=== PATIENT | male | born 1990 | race Two or more races ===

== ENCOUNTER 2020-04-22 16:36 | Emergency (ER) | payer SELFPAY ==
[2020-04-22 16:41] VITALS: BP 152/90; PULSE 98; RESP 20; TEMP 36.7; O2SAT 98; BMI 29.7
--- NOTE | 2020-04-22 17:04 | HMH.EDUTC ---
[facility] [place] Impression: Poison radha dermatitis Disposition: Home, Self-Care Condition on Discharge: Good Instructions: Summertime Rashes: Poison Radha, [place], and [place], Poison Radha, Poison [place], Poison [place], DI for Poison Radha Allergy, Prednisone Additional Instructions: over the counter Benadryl may help with itching *Over the counter Calamine lotion and oatmeal bathes may help to dry up the rash Take Prednisone dose pack as prescribed Return if needed Straight to ER if any life threatening symptoms Prescriptions: predniSONE [Prednisone 5mg Tab Dose-Pack] 5 mg PO UD DOSE PK 6 Days #21 pack Transmission Status: Pending to [id number] Referrals: Provider,Referral, MD [Primary Care Provider] - As needed Medical Decision Making - Drew Inquiry Pt receiving controlled substance: No Drew was queried for this patient: No Vital Signs: 04/22/20 16:41 Temperature 98.0 F Temperature Source Oral Pulse Rate [Right Brachial] 98 H Respiratory Rate 20 Blood Pressure [Right Arm] 152/90 H Blood Pressure Mean [Right Arm] 110 Blood Pressure Source [Right Arm] Automatic Cuff Blood Pressure Position [Right Arm] Sitting 02 Sat by Pulse Oximetry 98 Oxygen Delivery Method Room Air Orders (Tests/Meds): ED MEDICATIONS Discontinued Medications Generic Name Dose Route Start Last Admin Trade Name Milad PRN Reason Stop Dose Admin Methylprednisolone Sodium Succinate 125 mg 04/22/20 17:04 Solu-Medrol 125mg/2ml Vial IM 04/22/20 17:05 [place] [facility] [place] - General Stated complaint: POISON ON BOTH ARMS Time Seen by Provider: 04/22/20 17:04 Mode of Arrival: Ambulatory Source of Information: Patient Limitations: No Limitations Description of Symptoms (Recalled from Triage Doc. by RN): pt c/o a rash for 3 days, he states he thinks its poion radha HEENT Symptoms (Recalled from RN notes): No Resp Symptoms (Recalled from RN notes): No Skin Symptoms (Recalled from RN notes): Yes MS Symptoms (Recalled from RN notes): No Functional Status (Recalled from RN notes): Na - History of Present Illness Provider Complaint: Patient states that he has been having itchy rash on both arms for the last couple of days after being outside working near [employer] States that he has this last year and was dx with poison radha and got a shot and some pills and it helped States that he had some left over steriod cream but hasnt helped much - Related Data Previous Rx's Medication Instructions Recorded prednisone 20 mg tablet 20 mg PO BID 5 Days #10 tab 08/29/19 triamcinolone acetonide 0.5 % 1 applic TOPICAL BID 7 Days #15 g 08/29/19 topical cream predniSONE [Prednisone 5mg Tab 5 mg PO UD DOSE PK 6 Days #21 pack 04/22/20 Dose-Pack] Allergies Allergy/AdvReac Type Severity Reaction Status Date / Time No Known Allergies Allergy Verified 04/22/20 17:04 - Worker's Comp Is this a Worker's Comp case?: No [facility] History - Hepatitis A Screen Drug use history?: No High risk sexual behaviors?: No History of sexually transmitted infection?: No Currently employed?: No Childcare worker?: No Do you have indoor plumbing?: Yes Do you have electricity?: Yes Attestation statement:: This patient has been screened for Hepatitis A risk factors. I have reviewed the patient's past medical history: Yes Other Surgeries: Yes: Other Amputation: No Fractures: Yes - Social History Smoking Status: Never smoker Alcohol Intake: never Substance Use Type: denies use Occupational Status: employed Housing: house Household Members: family Family Hx:: No significant family history ROS Obtained: Yes All systems reviewed & no additional complaints, Yes Systems reviewed as appropriate & no additional complaints - Allergic/Immunologic Comments: Itchy rash on both arms like he has had before with poison radha Physical Exam - General General appearance: alert, in no apparent distress - Respiratory Respiratory exam: Pr
--- NOTE | 2020-04-22 17:17 | PC.NURSE ---
Solu-Medrol 125mg given in the R hip at this time. Unable to document in emr
[2020-04-22 17:32] VITALS: BP 152/90; PULSE 98; RESP 20; TEMP 36.7; O2SAT 98
== END 2020-04-22 17:33 | disposition home or self-care (01) ==
PROVIDERS: Emergency Provider Nurse Practitioner
DX: L23.7 Allergic contact dermatitis due to plants, except food (principal)
CPT/HCPCS: 99201